=== PATIENT | female | born 1965 | race Caucasian/White ===

== ENCOUNTER 2017-06-22 04:03 | Day surgery (SDC) | payer OTHER, BC ==
[~2017-06-22] VITALS: Ht 165.1 cm; Wt 119.3 kg
[~2017-06-22 04:03] MED LIST: ACET-1966 PO; ALB18R INH; LEVO75TA73 PO; PREG50CA48 PO; RIVA20TA PO; RIZA10TA3 PO; TEMA-55 PO; TOPI200T82 PO
[2017-06-22 06:04] VITALS: BP 98/57
[2017-06-22] MEDS ORDERED: LIDOCAINE/SOD BICARB 8.4% SYR ID ONE (06:15)
[2017-06-22] MEDS ORDERED: FAMOTIDINE 20 MG TAB PO ONE (06:15)
[2017-06-22] MEDS ORDERED: MIDAZOLAM 2 MG/2 ML VIAL IVP PRN (06:15)
[2017-06-22] MEDS ORDERED: NORMOSOL R SOLN(*) 1000 ML BAG 1,000 ML IV PRN (06:15)
[2017-06-22] MEDS ORDERED: ceFAZolin(*) 2GM/D5W 50ML 50 ML IVPB ONE (06:15)
[2017-06-22] MEDS ORDERED: BUPIV/EPI 0.25% 1:200,000 50ML INFIL ONE (06:35)
[2017-06-22] MEDS ORDERED: DEXAMETHASONE SOD 4 MG/ML VIAL ONE (06:54)
[2017-06-22] MEDS ORDERED: fentaNYL CITR 100 MCG/2 ML AMP ONE ×2 (06:54→08:54)
[2017-06-22] MEDS ORDERED: PROPOFOL EMUL(*) 10MG/ML 20 ML 20 ML ONE (06:54)
[2017-06-22] MEDS ORDERED: ONDANSETRON 4 MG/2 ML VIAL ONE (06:54)
[2017-06-22] MEDS ORDERED: LIDOCAINE MPF 1% 5 ML VIAL ONE (06:54)
[2017-06-22] MEDS ORDERED: KETAMINE HCL 200 MG/20 ML MDV ONE (06:55)
[2017-06-22] MEDS ORDERED: ROPIVACAINE 0.2% 20 ML VIAL ONE (07:01)
[2017-06-22] MEDS ORDERED: ROPIVACAINE 0.5% 20 ML VIAL ONE (07:01)
[2017-06-22] MEDS ORDERED: LIDO/EPI 2% MDV 1:100,000 20ML INFIL ONE (07:02)
[2017-06-22] MEDS ORDERED: SUGAMMADEX SOD 500 MG/5 ML SDV ONE (08:15)
[2017-06-22] MEDS ORDERED: NEOMYCIN/POLYMYX/BACITR OINT 1 PACKET TP ONE (08:21)
[2017-06-22] MEDS ORDERED: HYDR-385 PO (09:08)
[2017-06-22] MEDS ORDERED: CEPH500T7 PO (09:09)
[2017-06-22 09:45] VITALS: BP 87/51
[2017-06-22 10:00] VITALS: BP 90/54
[2017-06-22 10:10] VITALS: BP 95/53
[2017-06-22 10:15] VITALS: BP 88/63
[2017-06-22 10:18] VITALS: BP 91/66
[2017-06-22] MEDS ORDERED: ACET/HYDROC 5/325MG TH ER ONLY 2 TAB/BOTTLE ONE (10:34)
--- NOTE | 2017-06-22 14:45 | OPERATIVE REPORT 1 ---
EVENT DATE: June 22, 2017 SURGEON: Oskar Falcon MD ANESTHESIOLOGIST: Alfred Stringer MD ANESTHESIA: General plus scalene block. ALARM SECURITY OR SURVEILLANCE MONITOR: Ortega Fong PA-C PREOPERATIVE DIAGNOSIS Right shoulder subacromial impingement with acromioclavicular joint degenerative joint disease. POSTOPERATIVE DIAGNOSIS Right shoulder subacromial impingement with acromioclavicular joint degenerative joint disease with some labral fraying, but no biceps pathology. PROCEDURE PERFORMED Right shoulder arthroscopy with debridement of anterior labrum, debridement of posterosuperior labrum, subacromial decompression, bursectomy, and lateral clavicle excision. ESTIMATED BLOOD LOSS Minimal. INTRAVENOUS FLUIDS 1350 TOURNIQUET TIME None. SPECIMENS None. COMPLICATIONS None. IMPLANTS USED None. SUMMARY OF PROCEDURE The patient was brought into the operating room and placed on the OR table in the supine position. She was given a scalene block with ultrasound guidance by Dr. Stringer, after which she was given a general anesthetic and then placed in the beach chair position. Her body habitus made placement quite challenging, and it took a bit longer than average to do this. Tape was used to help secure things. After we had finished this, the right upper extremity was prepped and draped in the usual sterile fashion. An Emiliano shoulder zavala was used for both traction and positioning. Standard arthroscopic assessment was then undertaken after prep and drape were complete. We started by injecting the arthroscopic portals with a Marcaine and epinephrine mix. The portals were then established. Starting posteriorly, we established an anterior instrumentation portal from inside to out and then began to work. The initial assessment of the shoulder found the axillary recess to be free of loose bodies. The anteroinferior labrum was normal. The anterior labrum had slight fraying. The superior labrum was normal with no evidence of a SLAP tear. The intra-articular portion of the long head of the biceps was normal. When pulling the extra-articular portion into the joint, it looked normal as well. There was general inflammatory change inside the shoulder which was debrided with a shaver and then radiofrequency probe. The redundant posterosuperior labrum was also debrided, but there was minimal change in terms of arthritic deficits. The supraspinatus, infraspinatus, and remainder of rotator cuff as well as subscapularis were all evaluated and found to be normal. Once we finished with the intra-articular portion, we moved to the subacromial space where she had a moderate amount of bursitis, and I would estimate a moderate subacromial spur. The initial view did show that there was virtually no interval between the undersurface of the acromion and the rotator cuff when that was with traction on. Once we had completed this, there was a nice 5 to 7 mm space. We then also looked at the AC joint where she had inferior spur formation from the clavicle and contact between the two sites. Therefore, a bur was used to create a space of approximately 7 to 8 mm in between these two bones and also to remove the undersurface of the lateral clavicle where it was pushing down into the rotator cuff. A final bursectomy was completed, after which the rotator cuff was assessed with rotation, and no additional tear was found on the subacromial surface. The shoulder was drained. Arthroscopic portals were closed with nylon. She was awakened and transferred to the recovery area in stable condition. NAGI
[2017-06-26] MEDS ORDERED: FAMOTIDINE 20 MG TAB PO ONE (06:15)
[2017-06-26] MEDS ORDERED: NORMOSOL R SOLN(*) 1000 ML BAG 1,000 ML IV PRN (06:15)
[2017-06-26] MEDS ORDERED: ceFAZolin(*) 2GM/D5W 50ML 50 ML IVPB ONE (06:15)
[2017-06-26] MEDS ORDERED: LIDOCAINE/SOD BICARB 8.4% SYR ID ONE (06:15)
[2017-07-21] MEDS ORDERED: MIDAZOLAM 2 MG/2 ML VIAL IVP PRN (06:15)
== END 2017-06-22 09:45 | disposition home or self-care (01) ==
LOC: OR 04:03
PROVIDERS: ATTEND Orthopaedic Surgery Hand Surgery
DX: M19.011 Primary osteoarthritis, right shoulder (principal); M75.41 Impingement syndrome of right shoulder
CPT/HCPCS: 29822; 29824; 94667; 97110; 97165; J1100; J2001; J2250; J2405; J2704; J2795; J3010; J3490; L3670; J0690